=== PATIENT | male | born 1935 | race Caucasian/White ===

== ENCOUNTER 2017-02-28 17:50 | Inpatient (IN) | payer SELFPAY ==
[~2017-02-28] VITALS: Ht 160 cm; Wt 67.0 kg
--- NOTE | 2017-02-28 18:47 | NUR ---
PT TO ED FOR EVAL OF ABD PAIN AND DISTENTION X 5 DAYS. PT AWAKE AND ALERT. BREATHING EVEN UNLABORED. + DECREASED APPETITE. ABD DISTENDED AND SOFT. PT TO ROOM 3. FAMILY MEMBERS AT BEDSIDE.
--- NOTE | 2017-02-28 19:23 | NUR ---
REPORT GIVEN TO HOWARD BRICEÑO.
[2017-02-28 20:11] LABS: PLATELET COUNT 93 x10^3mcL (130-400); RED CELL DISTRIBUTION WIDTH 15.7 % (11.5-14.5)
[2017-02-28 20:26] LABS: ALBUMIN 2.4 g/dL (3.4-5.0); ALKALINE PHOSPHATASE 152 U/L (46-116); ALT/SGPT 21 U/L (16-63); AST/SGOT 31 U/L (15-37); BILIRUBIN TOTAL 1.47 mg/dL (0.20-1.00); CALCIUM 8.3 mg/dL (8.5-10.1); CARBON DIOXIDE 29.2 mmol/L (21-32); CHLORIDE SERUM 104 mmol/L (98-107); CHOLESTEROL 55 mg/dL (<200); CHOLESTEROL/HDL RATIO 5.5; CREATININE SERUM 1.4 mg/dL (0.7-1.3); GLUCOSE SERUM 119 mg/dL (74-106); HDL CHOLESTEROL 10 mg/dL (40-60); LIPASE 57 IU/L (73-393); POTASSIUM SERUM 4.1 mmol/L (3.5-5.1); SODIUM SERUM 142 mmol/L (136-145); TRIGLYCERIDES 99 mg/dL (<150)
[2017-02-28 20:38] LABS: BAND NEUTROPHIL 0 % (0-10); BASOPHIL 0 % (0-2); MONOCYTE 7 % (0-7); SEGMENTED NEUTROPHILS 88 % (37-75)
--- NOTE | 2017-02-28 21:00 | NUR ---
PT ON [facility] AWAKE AND ALERT WITH NO SIGNS OF DISTRESS. FULL MONITORS IN PLACE
[2017-02-28 21:06] LABS: UA SPECIFIC GRAVITY 1.025 (1.005-1.035); microscopic required? YES; urine erythrocyte TRACE (NEGATIVE)
[2017-02-28] MEDS ORDERED: BENTYL10 MG (22:16)
[2017-02-28] MEDS ORDERED: GOOD NEIGH1200 MG/15 (22:16)
[2017-02-28 23:26] VITALS: BP 119/68
--- NOTE | 2017-02-28 23:45 | NUR ---
RECEIVED PT. FROM ER AWAKE, ALERT, ORIENTED X4. SPEECH CLEAR, CONVERSATION APPROPRIATE. ABLE TO FOLLOW COMMANDS. HX OF GLAUCOMA, BLIND PIPE. BREATH SOUNDS CLEAR THROUGHOUT LUNG JOSE, RESP. EVEN, UNLABORED. NO SOB NOTED. ON 2L/NC. SR ON MONITOR. NO EDEMA NOTED TO EXTREMITIES. PEDAL PULSES STRONG PIPE. ABD. FIRM, ROUND. C/O ABD, WHICH INCREASES W/ MOVEMENT AND SITTING UP. PAIN LEVEL 5/10 PER PT. IV FLAGYL INFUSING ON ARRIVAL FROM ER, APPROX 50ML SAMMIE TO BE INFUSED.DENIES ANY NAUSEA AT THIS TIME. FAMILY AT BEDSIDE. DR. SERRA DOING ASSESSMENT. CALL LIGHT PLACED WITHIN REACH.
[2017-03-01 00:48] LABS: FREE T4 1.15 ng/dL (0.76-1.46); FREE THYROXINE INDEX 2.6 ug/dL (1.4-4.5); T4(THYROXINE) 7.3 ug/dL (4.7-13.3)
[2017-03-01 01:06] LABS: T3 TOTAL 0.81 ng/mL
--- NOTE | 2017-03-01 03:21 | NUR ---
PT. SLEEPING. IVF INFUSING WELL, SITE WNL. FREQUENTS ROUNDS MADE. PT. VISUALLY IMPAIRED. CALL LIGHT REMAINS IN REACH.
[2017-03-01 04:29] VITALS: BP 112/64
--- NOTE | 2017-03-01 04:33 | NUR ---
PT. AWAKENED W/ COMPLAINTS OF PAIN IN STOMACH, BUT ALSO STATED THAT HIS BODY HURTS ALL OVER, PAIN LEVEL 9/10. PRN MORPHINE GIVEN. BP 116/72. HR 90, SR. WILL CONTINUE TO MONITOR.
[2017-03-01 06:58] LABS: CALCIUM 7.9 mg/dL (8.5-10.1); CHLORIDE SERUM 107 mmol/L (98-107); CREATININE SERUM 1.2 mg/dL (0.7-1.3); GLUCOSE SERUM 95 mg/dL (74-106); MAGNESIUM 2.4 mg/dL (1.8-2.4); PHOSPHOROUS 3.2 mg/dL (2.5-4.9); PLATELET COUNT 136 x10^3mcL (130-400); POTASSIUM SERUM 3.9 mmol/L (3.5-5.1); SODIUM SERUM 142 mmol/L (136-145)
[2017-03-01 07:51] LABS: RED CELL DISTRIBUTION WIDTH 15.4 % (11.5-14.5)
--- NOTE | 2017-03-01 09:00 | NUR ---
PT ON BED, AWAKE, ALERT, AND ORIENTED. HAS NO COMPLAINT OF PAIN, SOB, OR DIZZINESS. RESPONDS WELL TO QUESTION AND ANSWER. ACTIVE BOWEL SOUNDS NOTED, NON DISTENDED ABDOMNE. CLEAR PIPE LUNG FIELD, SYMMETRICAL CHEST EXPANSION AND UNLABORED. SKIN INTACT. SIDE RAILS UP, CALL LIGHT WITHIN REACH, WILL CONTINUE TO MONITOR
[2017-03-01 09:45] VITALS: BP 130/64
[2017-03-01 10:33] LABS: BAND NEUTROPHIL 7 % (0-10); BASOPHIL 0 % (0-2); MONOCYTE 9 % (0-7); SEGMENTED NEUTROPHILS 74 % (37-75)
[2017-03-01 10:34] LABS: PLATELET MORPHOLOGY LARGE PLATELET SEEN; ovalocyte/elliptocyte 1+; rbc morphology (normal/abnorm) ABNORMAL (NORMAL); tear drop cell (dacryocyte) 1+
--- NOTE | 2017-03-01 12:06 | NUR ---
consent signed the patient. rn as witness. dr. sofia expalined the procedure and family at bedside.
--- NOTE | 2017-03-01 14:37 | NUR ---
PT RETURNED ON THE FLOOR. V/S STABLE. [address] WITH INEZ DRAIN IN PLACE
[2017-03-01 17:16] VITALS: BP 106/58
--- NOTE | 2017-03-01 17:34 | NUR ---
PT'S INEZ OUTPUT SHOWED 90 CC. PT ON BED, AWAKE, ALERT, AND ORIENTED. HAS NO COMPLAINT OF PAIN, SOB, OR DIZZINESS. SIDE RAILS UP, CALL LIGHT WITHIN REACH, WILL CONTINUE TO MONITOR
--- NOTE | 2017-03-01 19:39 | NUR ---
SHIFT REASESSMENT DONE.PATIENT ALERT AND ORIENTED,SPEAKING CITIZEN OF [place],BLIND,NEEDS ANTICIPATED.HAD LAP ANH TODAY.BAND AIDS IN ABD X 4,ALSO HAS INEZ,SEROUS DRAIN.GEN WEAKNESS.NS AT 50 CC/ HOUR RFA.FAMILY WAS VISITING,SUPPORTIVE OF CARE.MED SURG PATIENT,NO TELE,PATIENT SATED THAT HE HAD BM YESTERDAY.SCD INTACT.CALL LITE IN [facility].
--- NOTE | 2017-03-01 21:58 | NUR ---
PM MEDS GIVEN,DID NOT LIKE COLACE WITH APPLE SAUCE.IS WA WITH RESP BREATHING EXERCISE REMINDED TO DO.PATIENT IS BLIND,NEEDS ANTICIPATED.
[2017-03-01 22:02] VITALS: BP 123/71
--- NOTE | 2017-03-02 01:04 | NUR ---
CHECKED AT INTERVALS,PATIENT OFFERED PAIN PILL,BUT SAYS HE DO NOT HAVE PAIN.INEZ INTACT,SEROUS DRAINAGE.
--- NOTE | 2017-03-02 04:44 | NUR ---
PATIENT WANTING SODA,7 UP GIVEN,SWALLOWS WELL.AM LAB WORKS THIS AM.VOIDING IN URINAL AT BEDSIDE.I AND O RECORDED.BERNADINE MICHELLE EMPTIED WHEN NEEDED.IVF AT 50 CC/ HOUR,CALL LITE IN REACH.
[2017-03-02 05:17] VITALS: BP 108/64
--- NOTE | 2017-03-02 06:03 | NUR ---
AM LAB WORKS DONE,NO INCIDENT,PATIENT ASSIST WITH ADLS.NS AT 50/ HOUR.I AND O MEASURED.INEZ OUT PUT TOTAL OF 110 CC.INCENTIVE SPIROMETER ENCOUARAGED WHILE AWAKE.MOVING AROUND IN BED,O2 AT 2 LITERS,BREATHING EASY.WILL ENDORSE TO INCOMING SHIFT.CALL LIGHT IN REACH.
[2017-03-02 06:07] LABS: PLATELET COUNT 141 x10^3mcL (130-400)
[2017-03-02 06:13] LABS: CALCIUM 8.3 mg/dL (8.5-10.1); CARBON DIOXIDE 27.7 mmol/L (21-32); CHLORIDE SERUM 109 mmol/L (98-107); CREATININE SERUM 1.1 mg/dL (0.7-1.3); GLUCOSE SERUM 122 mg/dL (74-106); POTASSIUM SERUM 4.3 mmol/L (3.5-5.1); SODIUM SERUM 145 mmol/L (136-145)
--- NOTE | 2017-03-02 07:15 | NUR ---
RECEIVED Pt. AAOX4. Pt. LEGALLY BLIND. RESPIRATIONS EVEN AND UNLABORED. C/O MILD TOLERABLE ABD PAIN, OFFERED PAIN MEDICATION BUT REFUSED AT THIS TIME TIME. NO DISTRESS NOTED. IV AT RIGHT FOREARM PATENT AND INTACT. ABD X 4 BAND AID AND X 1 INEZ DRAIN SEROSANGUINOUS DRAINAGE NOTED. SCD IN PLACE. BED LOW/LOCKED. CALL LIGHT IN REACH.
--- NOTE | 2017-03-02 08:10 | NUR ---
MADE ROUNDS WITH DR. HERRING AND MEDICINE TEAM, Pt. TO CONTINUE IV ANTIBIOTICS AND POSSIBLE DISCHARGE TOMMORROW AND AGREED WITH PLAN OF CARE.
[2017-03-02 09:19] VITALS: BP 96/52
[2017-03-02 10:48] LABS: ATYPICAL LYMPH 3 %; BAND NEUTROPHIL 0 % (0-10); BASOPHIL 0 % (0-2); MONOCYTE 8 % (0-7); SEGMENTED NEUTROPHILS 86 % (37-75)
[2017-03-02 10:50] LABS: PLATELET MORPHOLOGY PLATELETS NORMAL
[2017-03-02 10:51] LABS: rbc morphology (normal/abnorm) ABNORMAL (NORMAL); schistocyte (helmet cell) 2+
--- NOTE | 2017-03-02 12:43 | NUR ---
Pt. SITTING UP IN CHAIR AT BEDSIDE. EATING LUNCH TRAY TOLERATED WELL. DENIES NO NAUSEA/VOMITING AT THIS TIME. Pt. REPORTED PASSING GAS. SON AT Pt. SIDE AT THIS TIME.
[2017-03-02 13:03] VITALS: BP 105/53
--- NOTE | 2017-03-02 16:14 | NUR ---
P.T. NOTES/INITIAL EVAL [id number] Pt WAS ADMITTED DUE TO CHOLECYSTITIS; 03/01/17 LAP ANH; Pt LIVES IN 1- [facility]SE W/ DAUGHTER (CHEVY, CAREGIVER); ARMHELD ASSIST IN AMBULATION W/ SPC; ASSISTED IN SOME ADLs; RETIRED [employer]. S:Pt WAS SEEN AWAKE & ALERT IN ROOM, SPEAKS SAUDI ARABIAN, ABLE TO FOLLOW SIMPLE COMMANDS W/ TACTILE CUES, CYRACOM PHONE AVAILABLE, SON IN ROOM & SUPPORTIVE; NO C/O PAIN OR DIZZINESS AT THIS TIME; ORIENTED x3, AGREEABLE & COOPERATIVE W/ P.T. O:BED MOBILITY: CG ASSIST IN SUPINE TO SIT, LOGROLL TECH TRANSFERS: CG ASSIST IN SIT TO STAND W/ SPC GAIT: MIN/CG ASSIST W/ SPC X 112 FT, ARMHELD, IV POLE IN TOW, SON PRESENT Pt AGREED TO SIT UP IN CHAIR AT BEDSIDE, CALL VENTURA, PHONE, TABLE IN REACH; APPRECIATIVE; ON ROOM AIR, SON IN ROOM. A:Pt DEMO GOOD RESPONSE TO P.T. SESSION; LEG BLIND; POST OP; NO NOTED LOSS OF BALANCE AT THIS TIME; REDUCED PACE GAIT; Pt EDUC ON SAFE GAIT, HEP, LOGROLL TECH IN BED MOB, USE OF CALL LIGHT FOR NURSE ASSIST, DEMO UNDERSTANDING, GOOD FOLLOW THRU; VU=797/72, HR=74, O2 SAT ROOM AIR=95% P:CONT PT ONCE DAILY 6X/WK X 1 WK; POC & DX DISCUSSED W/ STOCK CHECKERER; WILL BENEFIT W/ P.T. DURING ACUTE STAY. [id number] GCODES:[id number] FUNC REACH SCORE:22 inches [id number] Pt WAS GIVEN THERA EXER UE/LE INCORPORATED W/ SITTING ACT. EX8
--- NOTE | 2017-03-02 18:50 | NUR ---
Pt. AAOX4. RESPIRATIONS EVEN AND UNLABORED. DENIES PAIN/DISCOMFORT. NO DISTRESS NOTED. ABD X 4 BAND AID CDI. INEZ DRAIN X 1 SEROSANGUINOUS DRAINAGE 45 ML DURING SHIFT. IVF NS RUNNING TO IV AT RIGHT FOREARM PATENT AND INTACT. BED LOW/LOCKED. CALL LIGHT IN REACH.
--- NOTE | 2017-03-02 20:00 | NUR ---
RECEIVED PT IN BED.ALERT AND ORIENTED. LEGALLY JOYCE. ABLE TO VERBALIZE NEEDS . RDENIES HEADACHE/DIZZINESS. RESP. EVEN AND UNLABORED. ON ROOM AIR, NO DISTRESS NOTED. NO TELE, DENIES CHEST PAIN OR ANY DISCOMFORT AT THIS TIME.AFEBRILE AND VITAL SIGNS STABLE. ABD. INCISION SITES WITH BANDAIDS, DRY AND INTACT. INEZ IN PLACE, DRAINING SERO-SANG. DRAINAGE. ABD. SLIGHTLY DISTENDED, NO BM AT THIS TIME, BUT PASSING GAS PER PT. NO N/V NOTED.IVF, NS AT 50ML/HR, INTACT AND INFUSING VIA RFA, SITE CLEAR. VOIDING FREELY VIA URINAL.CALL LIGHT PLACED WITHIN REACH,INSTRUCTED TO CALL FOR ASSIST. BEFORE GETTING OUT OF BED. PT VERBALIZED UNDERSTANDING. WILL CONTINUE TO MONITOR.
[2017-03-02 20:43] VITALS: BP 97/58
--- NOTE | 2017-03-03 01:28 | NUR ---
NO COMPLAINTS NOTED. EYES CLOSED, APPEARS COMFORTABLE.NO DISTRESS NOTED. WILL CONTINUE TO MONITOR.
--- NOTE | 2017-03-03 03:41 | NUR ---
CHECKED AT INTERVALS , APPEARS COMFORTABLE. NO COMPLAINTS NOTED. WILL CONTINUE TO MONITOR.
[2017-03-03 05:30] VITALS: BP 106/57
[2017-03-03 06:12] LABS: PLATELET COUNT 174 x10^3mcL (130-400)
--- NOTE | 2017-03-03 06:22 | NUR ---
SLEPT MOST OF THE NIGHT. COMPLAINED OF MILD ABD. INCISION SITE PAIN, MEDICATED WITH NORCO 1TAB PO WITH RELIEF. INCISION SITES WITH BANDAIDS, DRY AND INTACT. INEZ DRAIN, DRAINING SERO-SANG DRAINAGE, TOTAL OF 35MLS OBTAINED. AFEBRILE AND VITAL SIGNS STABLE. IVF INTACT AND INFUSING WELL. SITE CLEAR. VOIDING FREELY. WILL ENDORSE TO INCOMING NURSE.
[2017-03-03 06:24] LABS: ALKALINE PHOSPHATASE 144 U/L (46-116); ALT/SGPT 34 U/L (16-63); AST/SGOT 53 U/L (15-37); BILIRUBIN TOTAL 0.6 mg/dL (0.20-1.00); CALCIUM 7.7 mg/dL (8.5-10.1); CARBON DIOXIDE 29.8 mmol/L (21-32); CHLORIDE SERUM 110 mmol/L (98-107); GLUCOSE SERUM 88 mg/dL (74-106); POTASSIUM SERUM 3.6 mmol/L (3.5-5.1); SODIUM SERUM 146 mmol/L (136-145)
[2017-03-03 06:30] LABS: ALBUMIN 1.8 g/dL (3.4-5.0); TOTAL PROTEIN, SERUM 5.7 g/dL (6.4-8.2)
[2017-03-03 06:37] LABS: RED CELL DISTRIBUTION WIDTH 15.8 % (11.5-14.5)
--- NOTE | 2017-03-03 07:15 | NUR ---
RECEIVED Pt. AAOX4. RESPIRATIONS EVEN AND UNLABORED. DENIES PAIN/DISCOMFORT AT THIS TIME. NO DISTRESS NOTED. IVF RUNNING TO IV AT RIGHT FOREARM PATENT AND INTACT. ABD X 4 BAND AID CDI, X 1 INEZ DRAIN DRAINING SEROSANGUINOUS DRAINAGE. BED LOW/LOCKED. CALL LIGHT IN EACH.
--- NOTE | 2017-03-03 08:45 | NUR ---
ALCIDES ROUNDS WITH DR. MONGE AND MEDICINE TEAM, Pt. POSSIBLE DISCHARGE TODAY AND AGREED WITH PLAN CARE.
[2017-03-03] MEDS ORDERED: NORCO1 TA2 PO (11:25)
[2017-03-03] MEDS ORDERED: MOT600 PO (11:26)
[2017-03-03] MEDS ORDERED: COLACE100 MG PO (11:26)
[2017-03-03] MEDS ORDERED: AUG500 PO (11:28)
[2017-03-03] MEDS ORDERED: LAC PO (11:28)
[2017-03-03] MEDS ORDERED: ZOF4 PO (11:29)
[2017-03-03] MEDS ORDERED: MIRALAX17 GM/Dose PO (11:30)
--- NOTE | 2017-03-03 13:26 | NUR ---
PT NOTES TIME [id number] S: CLEARED BY RN FOR P.T. TX. PATIENT IS AWAKE & ALERT IN A SEMI GROVER POSITION IN BED. AGREEABLE TO P.T. TX. NO C/O PAIN OR DIZZINESS AT THIS TIME. O: VS AT REST BP 110/60, HR 94 BPM, SPO2 ON RA 91% BED MOBILITY: SUPINE<>SIT VIA LOGROLL CGA. VC W/ PROPER SEQUENCE FOR BED MOBILITY & USE OF SIDERAIL TO FACILITATE LOGROLLING TECHNIQUE. TRANSFER: SIT<>STAND W/ SPC CGA. VC GIVEN W/ PROPER SEQUENCE FOR SIT<>STAND TRANSFER. GAIT: 215FT W/ SPC & AHA CGA. PATIENT IS BLIND. REQUIRES CONSTANT VC/TC TO MANUEVER SAFELY AROUND OBSTACLES. STEADY GAIT NO LOB. DECREASE GAIT VELOCITY. EDUCATED PATIENT ON SAFETY FOR FALL PREVENTION, LOGROLLING TECHNIQUE, & DEEP BREATHING TECHNIQUE W/ G UNDERSTANDING. COOPERATIVE & APPRECIATIVE OF CARE. SPO2 ON RA AFTER GAIT TRAINING 90%, HR 73 BPM. STANDING BALANCE EXERCISE MARCHING IN PLACE, FORWARD LEG KICKS & SEATED KNEE FLEX/EXT X 5 REPS X 2 SETS W/ REST BREAKS IN BETWEEN. PATIENT IS SAFELY & COMFORTABLY IN A SEMI GROVER POSITION IN BED W/ CALL BUTTON & TABLE IN REACH. BED ALARM ON. ALL LINES INTACT. O2 VIA NC IN PLACE. RN NOTIFIED. P: DISCUSSED W/ ORA PHYSICAL THERAPIST [id number]',[id number]',[id number]'
[2017-03-03 13:34] LABS: SEGMENTED NEUTROPHILS 70 % (37-75)
[2017-03-03 13:35] LABS: BAND NEUTROPHIL 5 % (0-10); MONOCYTE 5 % (0-7)
[2017-03-03 13:37] LABS: rbc morphology (normal/abnorm) ABNORMAL (NORMAL)
[2017-03-03 13:38] LABS: PLATELET MORPHOLOGY LARGE PLATELET SEEN; ovalocyte/elliptocyte 1+; tear drop cell (dacryocyte) 1+
--- NOTE | 2017-03-03 14:36 | NUR ---
Pt. AAOX4. RESPIRATIONS EVEN AND UNLABORED. DENIES PAIN/DISCOMFORT AT THIS TIME. NO DISTRESS NOTED. WOUND CARE INSTRUCTIONS PROVIDED TO Pt. AND DAUGHTER HUGH KING AND VERBALIZED UNDERSTANDING. ABD SURGICAL SITE X 4 DSG CDI INEZ DRAIN X 1 WITH 25 ML OUTPUT, YELLOWISH-REDDISH DRAINAGE NOTED. IV AT RIGHT FOREARM REMOVED WITH CATH INTACT. ALL DISCHARGE INSTRUCTIONS EXPLAINED TO Pt. AND DAUGHTER HUGH KING AND VERBALIZED UNDERSTANDING. DAUGHTER HUGH KING SIGNED ALL DISCHARGE PAPERWORK PER Pt. REQUEST DUE TO Pt. LEGALLY BLIND. Pt. LEFT WITH ALL BELONGINGS.
== END 2017-03-03 14:44 | disposition home or self-care (01) | DRG 417 ==
LOC: ED 17:50 → DU 21:51 → MU 21:51 → DU 22:49 → MU 03-01 06:02
PROVIDERS: Specialist; Surgery; ADMIT Family Medicine
PROC: 0FT44ZZ Resection of Gallbladder, Percutaneous Endoscopic Approach (ICD-10-PCS; principal; 2017-03-01 12:00)
DX: K81.0 Acute cholecystitis (principal); N17.0 Acute kidney failure with tubular necrosis; E43 Unspecified severe protein-calorie malnutrition; N40.0 Benign prostatic hyperplasia without lower urinary tract symptoms; H40.9 Unspecified glaucoma; D64.9 Anemia, unspecified; E80.6 Other disorders of bilirubin metabolism; E83.51 Hypocalcemia; E87.8 Other disorders of electrolyte and fluid balance, not elsewhere classified; Z68.26 Body mass index [BMI] 26.0-26.9, adult
CPT/HCPCS: 80307; 83880; 84439; 94150; 97110-GP; 97116-GP; 97530-GP; J0290; J0690; J2175; J2250; J2270; J2405; J2543; J3010; J3490; J7030; Q0092